=== PATIENT | female | born 1940 ===

== ENCOUNTER 2020-12-31 15:32 | Outpatient (CLI) | payer MEDICARE, SELFPAY ==
--- NOTE | ~2020-12-31 | MR_ITS ---
EXAMINATION: MR knee RT wo con DATE: 12/31/2020 16:31 INDICATION: Right knee pain TECHNIQUE: Magnetic resonance imaging (MRI) of the right knee was performed without intravenous contr ast. Sequences included coronal PD-weighted FSE, coronal PD-weighted FS FSE, sagittal T2-weighted FS E, sagittal PD-weighted FS FSE and axial PD weighted fat saturated FSE. COMPARISON: Right knee radiographs dated 12/24/2020 FINDINGS: Medial compartment: Complex tear of the body and posterior horn of the medial meniscus. Partial-thickness chondral ulcera tion and fissuring without degenerative subchondral changes along the lateral half of the anterior to central weightbearing medial femoral condyle. There is prominent subarticular edema along significan t portions of the medial tibial plateau but with normal-appearing overlying cartilage. Lateral compartment: Discoid lateral meniscus which measures at least 18 mm medial collateral at the midportion of the men iscal body. Longitudinal horizontal tear extending from the anterior to the posterior horn of the lat eral meniscus. Partial-thickness chondral fissuring at the central aspect of the lateral tibial plate au. This occurs along the posterior margin of a medial collateral oriented 1 mm step-off along the ar ticular cortex suggesting sequela of an old healed impaction fracture. Partial-thickness cartilage lo ss with smooth chondral surface along the posterior weightbearing lateral femoral condyle. There is m ild subarticular edema along the medial aspect of the anteriormost weightbearing lateral femoral cond yle with intact appearing overlying cartilage. Patellofemoral compartment: Partial-thickness cartilage loss with mild chondral surface regularity without degenerative subchondr al changes along the lateral patellar facet and patellar apical ridge. Trochlear cartilage appears re latively preserved. Ligaments and tendons: Anterior and posterior cruciate ligaments are normal. The medial collateral ligament and fibular sebastián ateral ligament complex are normal. The extensor mechanism is normal. The visualized medial and later al hamstring tendons as well as the iliotibial band are normal. Fluid: Minimal right knee joint effusion at the suprapatellar pouch. No loose osteochondral bodies identifie d. Mild prepatellar edema without discrete bursal fluid collection. Osseous/other: Marrow edema as previously detailed at the medial tibial plateau and to a lesser degree along the ant erior weightbearing lateral femoral condyle. No evident associated fracture line or associated chondr omalacia. No fracture or pathologic marrow replacing process. IMPRESSION: 1. Complex medial meniscal tear. 2. 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 3. 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 4. Prominent marrow edema along the medial tibial plateau and small region of marrow edema along the anteromedial aspect of the weightbearing lateral femoral condyle without evident overlying chondromal acia or fracture in this could be related to either bone contusions or stress reaction related to alt ered weight distribution secondary to the meniscal tears. 5. Linear 1 mm step-off without discontinuity along the articular cortex at the central aspect of the lateral tibial plateau and with normal underlying marrow signal suggesting possible old healed later al tibial plateau fracture. Correlate with clinical history.. Reviewed, dictated and finalized at location [facility] IMPRESSION: 1. Complex medial meniscal tear. 2. 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 3. Mild tricompartmental osteoarthritis with regions of moderate grade chondrom alacia in all 3
== END 2020-12-31 15:33 | disposition home or self-care (01) ==
PROVIDERS: PCP Internal Medicine Geriatric Medicine; Visit Provider Orthopaedic Surgery
DX: M25.561 Pain in right knee (principal); S83.231A Complex tear of medial meniscus, current injury, right knee, initial encounter; S83.281A Other tear of lateral meniscus, current injury, right knee, initial encounter; M17.11 Unilateral primary osteoarthritis, right knee; M94.261 Chondromalacia, right knee; M79.89 Other specified soft tissue disorders
CPT/HCPCS: 73721